=== PATIENT | female | born 1970 ===

== ENCOUNTER 2024-10-03 15:01 | Emergency (ER) | payer BC ==
[2024-10-03 15:43] LABS: BASOPHILS PERCENT AUTO 0.3 % (0.0-1.0); HEMATOCRIT 40.4 % (37.0-47.0); HEMOGLOBIN 13.4 g/dL (12.0-16.0); LYMPHOCYTES PERCENT AUTO 43.9 % (20.5-50.1); MEAN CORPUSCULAR HEMOGLOBIN 30.4 pg (27.0-34.0); MEAN CORPUSCULAR HGB CONC 33.2 g/dL (33.0-35.0); MEAN CORPUSCULAR VOLUME 91.6 fL (80-100); MONOCYTES PERCENT AUTO 9.7 % (2-8); NEUTROPHILS PERCENT AUTO 43.1 % (42.2-75.2); PLATELET COUNT,PLT 260 10^3/uL (150-450); RED BLOOD CELL COUNT 4.41 10^6/uL (4.2-5.4)
[2024-10-03 15:56] LABS: ANION GAP 14.7 mEq/L (7-13); CALCIUM 8.7 mg/dL (8.5-10.1); CREATININE 1.08 mg/dL (0.55-1.02); EST CRCL DRUG DOSING (CG) 57.23 mL/min; POTASSIUM,K 3.7 mmol/L (3.5-5.1)
[2024-10-03] MEDS: Aspirin 81 MG Tab.Chew PO ONE (16:45)
[2024-10-03] MEDS: Aspirin 325 MG Tab PO ONE (17:01)
[2024-10-03 17:34] LABS: A/G RATIO 1.2; ALBUMIN 3.9 g/dL (3.4-5.0); BILIRUBIN DIRECT 0.1 mg/dL (0.0-0.2); BILIRUBIN INDIRECT 0.3; BILIRUBIN TOTAL 0.4 mg/dL (0.2-1.0); PROTEIN TOTAL,TP 7.1 g/dL (6.4-8.2)
== END 2024-10-03 18:20 | disposition home or self-care (01) ==
LOC: DL.ED 15:01
DX: M25.512 Pain in left shoulder (principal); R07.9 Chest pain, unspecified
CPT/HCPCS: 36415; 71045; 80048; 80076; 83615; 84484; 85025; 99284; A9270; 93010